=== PATIENT | male | born 1970 | race Two or more races ===

== ENCOUNTER → 2024-05-30 | Outpatient (CLI) | payer MEDICAID, SELFPAY ==
--- NOTE | 2024-05-30 11:00 | XR_ITS ---
Examination: CT abdomen, without intravenous contrast. CT abdomen, with intravenous contrast. Sagittal and coronal 2-D reconstructions. Time of exam:May 30, 2024 1225 hours INDICATIONS: Elevated liver function tests on laboratory examination this month, alcohol abuse history CTDI: vol (mGy) 33.6 DLP: (mGycm) 1341 Technique: Multiple 3.0 mm axial noncontrast images of the abdomen have been obtained. Multiple 3.0 mm axial images post administration 60 cc [id number] intravenous contrast have been obtained. Sagittal and coronal 3-D reconstructions have been obtained. Low dose protocols were performed. One or more of the following dose reduction techniques were used; automated exposure control, adjustment of the mA and/or KV according to patient size, use of iterative reconstruction technique. Findings: Diffuse fatty infiltration throughout the liver, liver mildly irregular in contour, no focal liver lesions No gallstones Spleen not enlarged No pancreatic or adrenal mass Mild bilateral renal parenchymal scar formation, no hydronephrosis Aorta normal size No bowel obstruction Normal appendix IMPRESSION: Suspect primary hepatocellular disease, fatty liver, no focal liver lesions Mild bilateral renal parenchymal scar formation
== END | disposition home or self-care (01) ==
PROVIDERS: PCP Nurse Practitioner Family; Referring Provider Nurse Practitioner Family; Visit Provider Nurse Practitioner Family
DX: N28.89 Other specified disorders of kidney and ureter (principal)
CPT/HCPCS: 74170; A4649; Q9967